=== PATIENT | male | born 1970 | race Caucasian/White ===

== ENCOUNTER 2017-09-04 08:57 | Emergency (ER) | payer BC ==
[2017-09-04 09:19] VITALS: BP 149/99
--- NOTE | 2017-09-04 09:39 | UC ---
Skin Complaint HPI - HPI Summary HPI Summary: 47 yo male with tick bite right axilla He removed it may have been attached 1-2 days - History of Current Complaint Chief Complaint: UCRash Time Seen by Provider: 09/04/17 09:29 Stated Complaint: TICK BITE Hx Obtained From: Patient Onset/Duration: Lasting Days Timing: Constant Onset Severity: Mild Current Severity: Mild Pain Intensity: 1 Pain Scale Used: 0-10 Numeric Location: Other - right axilla Aggravating Factor(s): Nothing Alleviating Factor(s): Nothing Related History: Insect Bite/Sting - Allergy/Home Medications Allergies/Adverse Reactions: Allergies Allergy/AdvReac Type Severity Reaction Status Date / Time amlodipine Allergy Numbness Verified 09/04/17 09:22 And Tingling lisinopril Allergy syncope , Verified 09/04/17 09:22 collapse environmental Allergy Runny Uncoded 05/04/16 16:45 nose, watery itchy eyes Home Medications: Home Medications Loratadine 10 mg PO DAILY 09/04/17 [History Confirmed 09/04/17] Review of Systems Constitutional: Negative Skin: Negative Eyes: Negative ENT: Negative Respiratory: Negative Cardiovascular: Negative Gastrointestinal: Negative Genitourinary: Negative Motor: Negative Neurovascular: Negative Musculoskeletal: Negative Neurological: Negative Psychological: Negative Is Patient Immunocompromised?: No All Other Systems Reviewed And Are Negative: Yes PMH/Surg Hx/FS Hx/Imm Hx Previously Healthy: Yes Cardiovascular History: Hypertension - Surgical History Surgical History: Yes Surgery Procedure, Year, and Place: Umbillical Hernia, 2012, [facility]; Right Hand Surgery s/p saw accident, 2007, [place], hernia repair as a child - Family History Known Family History: Positive: Hypertension, Diabetes - Social History Alcohol Use: None Substance Use Type: None Smoking Status (MU): Former Smoker Have You Smoked in the Last Year: Yes When Did the Patient Quit Smoking/Using Tobacco: 5 years ago - Immunization History Most Recent Tetanus Shot: 10/2015 Physical Exam Triage Information Reviewed: Yes Appearance: Well-Appearing, No Pain Distress, Well-Nourished Vital Signs: Initial Vital Signs Temp 98 F 09/04/17 09:10 Pulse 59 09/04/17 09:10 Resp 18 09/04/17 09:10 BP 149/99 09/04/17 09:10 Pulse Ox 99 09/04/17 09:10 Vital Signs Reviewed: Yes Eyes: Positive: Conjunctiva Clear ENT: Positive: Hearing grossly normal. Negative: Nasal congestion, Nasal drainage, Trismus, Muffled voice, Hoarse voice Neck: Positive: Supple Respiratory: Positive: Lungs clear, Normal breath sounds, No respiratory distress, No accessory muscle use Cardiovascular: Positive: RRR, No Murmur Musculoskeletal: Positive: ROM Intact, No Edema Neurological: Positive: Alert Psychological Exam: Normal Skin Exam: Other - mild erthyma surrounding tick bite site right axilla (about 1cm diameter) Course/Dx - Diagnoses Provider Diagnoses: tike bite. lyme diseas prophylaxis Discharge - Sign-Out/Discharge Documenting (check all that apply): Discharge/Admit/Transfer - Discharge Plan Condition: Stable Disposition: HOME Prescriptions: DOXYcycline CAP(*) [DOXYcycline 100MG CAP(*)] 200 mg PO DAILY #2 cap Patient Education Materials: Tick Bite (ED) Referrals: Crescencio Stephens MD [Primary Care Provider] - Additional Instructions: call for any questions return for any problems - Billing Disposition and Condition Condition: STABLE Disposition: HOME
== END 2017-09-04 09:50 | disposition home or self-care (01) ==
LOC: UCCORT 08:57
DX: S40.861A Insect bite (nonvenomous) of right upper arm, initial encounter (principal); W57.XXXA Bitten or stung by nonvenomous insect and other nonvenomous arthropods, initial encounter; Z29.8 Encounter for other specified prophylactic measures; Z88.8 Allergy status to other drugs, medicaments and biological substances; Z87.891 Personal history of nicotine dependence
CPT/HCPCS: 99212; G0463

== ENCOUNTER 2019-02-24 17:36 | Emergency (ER) | payer BC ==
[2019-02-24 17:53] VITALS: BP 138/84
--- NOTE | 2019-02-24 18:52 | ED ---
Skin Complaint - HPI Summary HPI Summary: 49-year-old male presents with complaints of tick bite to his right upper back. States he discomfort the tick this evening and his attempted to remove it but thinks there may be part of the tick still embedded. States the tick was not engorged. He believes it's been attached for less than 24 hours. Denies fever, chills, rash, flulike illness, myalgias, joint pain or swelling. - History of Current Complaint Chief Complaint: UCSkin Time Seen by Provider: 02/24/19 18:25 Stated Complaint: TICK Hx Obtained From: Patient Pain Intensity: 1 - Allergy/Home Medications Allergies/Adverse Reactions: Allergies Allergy/AdvReac Type Severity Reaction Status Date / Time amlodipine Allergy Numbness Verified 02/24/19 17:53 And Tingling lisinopril Allergy syncope , Verified 02/24/19 17:53 collapse environmental Allergy Runny Uncoded 02/24/19 17:53 nose, watery itchy eyes PMH/Surg Hx/FS Hx/Imm Hx Endocrine/Hematology History: Denies: Hx Diabetes, Hx Thyroid Disease Cardiovascular History: Reports: Hx Hypertension Respiratory History: Denies: Hx Asthma, Hx Chronic Obstructive Pulmonary Disease (COPD) GI History: Reports: Hx Gastroesophageal Reflux Disease Denies: Hx Ulcer - Surgical History Surgery Procedure, Year, and Place: Umbillical Hernia, 2012, [facility]; Right Hand Surgery s/p saw accident, 2007, [place], hernia repair as a child Infectious Disease History: No Infectious Disease History: Denies: Hx Hepatitis, Hx Human Immunodeficiency Virus (HIV), Traveled Outside the [place] in Last 30 Days - Family History Known Family History: Positive: Hypertension, Diabetes - Social History Occupation: Employed Full-time Lives: With Family Alcohol Use: None Substance Use Type: Reports: None Smoking Status (MU): Former Smoker Have You Smoked in the Last Year: Yes Review of Systems Negative: Fever, Chills Cardiovascular: Negative Respiratory: Negative Gastrointestinal: Negative Genitourinary: Negative Musculoskeletal: Negative Skin: Other - See HPI Neurological: Negative All Other Systems Reviewed And Are Negative: Yes Physical Exam - Summary Physical Exam Summary: GENERAL APPEARANCE: Alert and cooperative adult male who appears to be in no acute distress. CARDIAC: Normal S1 and S2. No S3, S4 or murmurs. Rhythm is regular. There is no peripheral edema, cyanosis or pallor. Extremities are warm and well perfused. Capillary refill is less than 2 seconds. Peripheral pulses intact. LUNGS: Clear to auscultation without rales, rhonchi, wheezing or diminished breath sounds. ABDOMEN: Positive bowel sounds. Soft, nondistended, nontender. No guarding or rebound. No masses or hepatosplenomegally. MUSKULOSKELETAL: ROM intact to all extremities. No joint erythema or tenderness. Normal muscular development. Normal gait. SKIN: Skin normal color, texture and turgor. Small circular area of excoriation < 0.5 cm in diameter with a retained jaw part noted. There is a small amount of erythema of the surrounding tissue. Triage Information Reviewed: Yes Vital Signs On Initial Exam: Initial Vitals Temp Pulse Resp BP Pulse Ox 98.3 F 62 16 138/84 98 02/24/19 17:50 02/24/19 17:50 02/24/19 17:50 02/24/19 17:50 02/24/19 17:50 Vital Signs Reviewed: Yes Diagnostics - Vital Signs Vital Signs Temp Pulse Resp BP Pulse Ox 02/24/19 17:50 98.3 F 62 16 138/84 98 - Laboratory Lab Statement: Any lab studies that have been ordered have been reviewed, and results considered in the medical decision making process. Course/Dx - Course Course Of Treatment: 49-year-old male presents with complaints of tick bite to his right upper back. States he discomfort the tick this evening and his attempted to remove it but thinks there may be part of the tick still embedded. States the tick was not engorged. He believes it's been attached for less than 24 hours. Denies fever, chills, rash, flulike illness, myalgias, joint pain or swelling. Afebrile. Vital signs stable. Patient had a small circular area of excoriation < 0.5 cm in diameter with a retained jaw part noted. There is a small amount of erythema of the surrounding tissue. Remainder of exam was unremarkable. I was able to remove the retained jaw part using splinter forceps. I discussed with the patient that since the tick was attached for less than 24 hours and was not engorged there is very little risk for transmission of Lyme disease and I'm recommending watchful waiting at this time. I reviewed the signs and symptoms of Lyme disease with the patient. He is to follow-up with his primary care provider as needed. Anticipatory guidance and warning symptoms were reviewed with the patient. Verbalizes understanding and agrees with plan of care. - Differential Diagnoses - Skin Complaint Differential Diagnoses: Local Allergic Reaction, Tick Born Illness - Diagnoses Provider Diagnoses: Tick bite of back Discharge ED - Sign-Out/Discharge Documenting (check all that apply): Patient Departure All imaging exams completed and their final reports reviewed: No Studies - Discharge Plan Condition: Stable Disposition: HOME Patient Education Materials: Tick Bite (ED) Referrals: Crescencio Stephens MD [Primary Care Provider] - If Needed Additional Instructions: Ticks transmit infection only after they have attached and then taken a blood meal from their new host. A tick that has not attached cannot not pass any infection. Since the deer tick that transmits Lyme disease typically feeds for more than 36 hours before transmitting the organisim that causes Lyme disease, the risk of acquiring Lyme disease from an tick bite is extremely small, even in an area where the disease is common. There is no benefit of blood testing for Lyme disease at the time of the tick bite because even people who become infected will not have a positive blood test until approximately two to six weeks after the tick bite. To try to avoid getting bitten by a tick, you can: * Wear shoes, long-sleeved shirts, and long pants when you go outside. Keep ticks away from your skin by tucking your pants into your socks. * Wear light colors so you can spot any ticks that get on your clothes. * Wear bug spray or cream that contains DEET. (Do not use DEET on babies younger than 2 months.) On your clothes and gear, you can use bug repellents that have a chemical called "permethrin." * Shower within 2 hours of being outdoors if you think you have been in an area where there are ticks. * Put dry clothes briefly (for about 4 minutes) in a dryer after being outdoors. * Check your clothes and body for ticks after being outdoors. Be sure to check your scalp, waist, armpits, groin, and backs of your knees. Check your children , too. After a tick bite, you will need to monitor for signs of Lyme disease over the nexter several weeks even if you have been given antibiotics to prevent the infection. Seek immediate medical attention if you develop a bullseye rash, fever, flu-like symptoms including headache, stiff neck, fatigue, muscle aches, joint pain or swelling. - Billing Disposition and Condition Condition: STABLE Disposition: Home
== END 2019-02-24 18:57 | disposition home or self-care (01) ==
LOC: UCCORT 17:36
DX: S20.461A Insect bite (nonvenomous) of right back wall of thorax, initial encounter (principal); I10 Essential (primary) hypertension; Z87.891 Personal history of nicotine dependence; Z88.8 Allergy status to other drugs, medicaments and biological substances; Z91.09 Other allergy status, other than to drugs and biological substances; W57.XXXA Bitten or stung by nonvenomous insect and other nonvenomous arthropods, initial encounter; Y92.9 Unspecified place or not applicable
CPT/HCPCS: 99211; G0463